=== PATIENT | female | born 1950 | race Caucasian/White ===

== ENCOUNTER 2020-11-13 11:28 | Emergency (ER) | payer MEDICARE, MEDICAID ==
[~2020-11-13 11:28] MED LIST: BACL10TA PO; LORA-269 PO; PARO40TA PO; PENT100C9 PO; QUET-1 PO
== END 2020-11-13 13:26 | disposition left against medical advice (07) ==
LOC: ER 11:28
DX: Z00.00 Encounter for general adult medical examination without abnormal findings (principal); Z53.21 Procedure and treatment not carried out due to patient leaving prior to being seen by health care provider

== ENCOUNTER 2021-12-02 08:01 | Emergency (ER) | payer MEDICARE, MEDICAID ==
[~2021-12-02] VITALS: Ht 167.6 cm; Wt 84.1 kg
[2021-12-02 08:06] VITALS: BP 160/83
[2021-12-02 12:48] LABS: BASOPHILS % (AUTO) 0.5 % (0-1); EOSINOPHILS # (AUTO) 0.1 X10'3 (0-0.9); EOSINOPHILS % (AUTO) 1.6 % (0-6); HEMATOCRIT 40.4 % (35.0-45.0); HEMOGLOBIN 13.4 g/dl (12.0-16.0); LYMPHOCYTES # (AUTO) 0.8 X10'3 (1.1-4.8); LYMPHOCYTES % (AUTO) 12.3 % (21-51); MEAN CORPUSCULAR HEMOGLOBIN 30.6 PG (27.0-31.0); MEAN CORPUSCULAR HGB CONC 33.2 g/dL (33.0-36.5); MEAN PLATELET VOLUME 7.8 FL (7.4-10.4); MONOCYTES # (AUTO) 0.6 X10'3 (0-0.9); MONOCYTES % (AUTO) 9.2 % (2-12); NEUTROPHILS % (AUTO) 76.4 % (42-75); PLATELET COUNT 258 X10'3 (140-440); RED BLOOD COUNT 4.39 X10'6 (4.20-5.60); RED CELL DISTRIBUTION WIDTH 16.8 % (11.5-14.5); WHITE BLOOD COUNT 6.5 X10'3 (4.5-11.0)
[2021-12-02 13:09] LABS: ALANINE AMINOTRANSFERASE 21 U/L (12-78); ALBUMIN 2.9 G/DL (3.4-5.0); ALBUMIN/GLOBULIN RATIO 0.8 (1.1-1.5); ALKALINE PHOSPHATASE 160 IU/L (46-116); ANION GAP 8 (8-16); ASPARTATE AMINO TRANSFERASE 19 U/L (10-37); BILIRUBIN,TOTAL 0.9 MG/DL (0.1-1.0); BLOOD UREA NITROGEN 15 MG/DL (7-18); BUN/CREATININE RATIO 19.7 (6.6-38.0); CALCIUM 8.8 MG/DL (8.5-10.1); CHLORIDE 105 MMOL/L (99-107); CREATININE 0.76 MG/DL (0.40-0.90); GLUCOSE 105 MG/DL (70-104); POTASSIUM 3.6 MMOL/L (3.5-5.1); SODIUM 141 MMOL/L (135-145); TOTAL CARBON DIOXIDE 27.6 MMOL/L (24-32); TOTAL PROTEIN 6.7 G/DL (6.4-8.2); eGFR 75 ML/MIN
[2021-12-02 13:13] LABS: MAGNESIUM 1.7 MG/DL (1.5-2.4); PHOSPHORUS 3.4 MG/DL (2.3-4.5)
[2021-12-02 14:00] LABS: CLARITY,URINE CLOUDY (Clear); COLOR,URINE YELLOW (Yellow); GLUCOSE, URINE NEGATIVE (Neg); KETONES,URINE NEGATIVE (Neg); LEUKOCYTE ESTERASE ,URINE NEGATIVE (Neg); NITRITES, URINE POSITIVE (Neg); OCCULT BLOOD,URINE SMALL (Neg); PROTEIN,URINE TRACE mg/dl (Neg); UROBILINOGEN,URINE 0.2 E.U/dL (0.2-1.0)
[2021-12-02 14:02] LABS: UA COLLECTION TYPE NON-SPECIFIED
[2021-12-02 14:17] LABS: URINE AMPHETAMINE SCREEN NEGATIVE (Neg); URINE BARBITUATE SCREEN NEGATIVE (Neg); URINE BENZODIAZEPINES SCREEN NEGATIVE (Neg); URINE CANNABINOID SCREEN NEGATIVE (Neg); URINE COCAINE SCREEN NEGATIVE (Neg); URINE METHADONE SCREEN NEGATIVE (Neg); URINE OPIATE SCREEN NEGATIVE (Neg); URINE PHENCYCLIDINE SCREEN NEGATIVE (Neg)
[2021-12-02 14:28] LABS: BACTERIA,URINE 4+ /HPF (Neg); SQUAMOUS EPITHELIAL CELL,UR MANY /LPF (FEW)
[2021-12-02 14:29] LABS: CAL OXALATE CRYSTALS 2+ /HPF (NEGATIVE)
[2021-12-02 14:30] LABS: RBC,URINE 0-2 /HPF (0-2)
[2021-12-02] MEDS ORDERED: cephalexin 500mg capsule PO ONE (14:35)
[2021-12-02] MEDS ORDERED: sulfamethoxazole/trimethoprim DS (800/160mg) tablet PO ONE (14:50)
[2021-12-02] MEDS ORDERED: SULF1TAB49 PO (14:56)
== END 2021-12-02 17:03 | disposition home or self-care (01) ==
LOC: ER 08:01
DX: S80.212A Abrasion, left knee, initial encounter (principal); S80.211A Abrasion, right knee, initial encounter; Y04.0XXA Assault by unarmed brawl or fight, initial encounter; Y93.89 Activity, other specified; Y92.89 Other specified places as the place of occurrence of the external cause; Y99.8 Other external cause status; Z88.1 Allergy status to other antibiotic agents; Z88.0 Allergy status to penicillin; Z79.899 Other long term (current) drug therapy
CPT/HCPCS: 36415; 71046; 73560; 80053; 80305; 81001; 83735; 84100; 84484; 85025; 85651; 93005; 99285

== ENCOUNTER 2021-12-04 17:20 | Emergency (ER) | payer MEDICARE, MEDICAID ==
[~2021-12-04] VITALS: Ht 160 cm; Wt 90.9 kg
[~2021-12-04 17:20] MED LIST changes: +SULF1TAB49 PO
[2021-12-04] MEDS ORDERED: SULF1TAB49 PO (17:44)
[2021-12-04 17:48] VITALS: BP 131/109
== END 2021-12-04 18:07 | disposition home or self-care (01) ==
LOC: ER 17:21
DX: Z76.0 Encounter for issue of repeat prescription (principal); M25.561 Pain in right knee; Z60.2 Problems related to living alone; Z88.1 Allergy status to other antibiotic agents; Z88.0 Allergy status to penicillin; Z79.2 Long term (current) use of antibiotics; Z79.899 Other long term (current) drug therapy
CPT/HCPCS: 99281

== ENCOUNTER 2022-10-25 01:43 | Emergency (ER) | payer MEDICARE, MEDICAID ==
[~2022-10-25] VITALS: Ht 167.6 cm; Wt 63.6 kg
[~2022-10-25 01:43] MED LIST changes: -BACL10TA PO; +COR3.125T PO; +FURO40TA4 PO; +LISI5TAB22 PO; -LORA-269 PO; -PARO40TA PO; -PENT100C9 PO; -QUET-1 PO; +SPIR25TA5 PO; -SULF1TAB49 PO
[2022-10-25 01:55] VITALS: BP 165/102
== END 2022-10-25 06:16 | disposition home or self-care (01) ==
LOC: ER 01:44
DX: R42 Dizziness and giddiness (principal); I10 Essential (primary) hypertension; Z88.1 Allergy status to other antibiotic agents
CPT/HCPCS: 93005; 99283

== ENCOUNTER 2022-10-27 03:37 | Emergency (ER) | payer MEDICARE, MEDICAID ==
[~2022-10-27] VITALS: Ht 167.6 cm; Wt 61.4 kg
[2022-10-27 03:56] VITALS: BP 147/53
[2022-10-27] MEDS ORDERED: ACID1CAP3 PO (04:35)
[2022-10-27] MEDS ORDERED: POTA10TA21 PO (04:35)
[2022-10-27] MEDS ORDERED: MAGN64TA8 PO (04:35)
== END 2022-10-27 05:31 | disposition home or self-care (01) ==
LOC: ER 03:38
DX: R25.2 Cramp and spasm (principal); Z76.0 Encounter for issue of repeat prescription
CPT/HCPCS: 99281

== ENCOUNTER 2022-10-29 00:32 | Emergency (ER) | payer MEDICARE, MEDICAID ==
[~2022-10-29] VITALS: Ht 162.6 cm; Wt 68.2 kg
[~2022-10-29 00:32] MED LIST changes: +ACID1CAP3 PO; +MAGN64TA8 PO; +POTA10TA21 PO
[2022-10-29 00:46] VITALS: BP 142/47
== END 2022-10-29 05:16 | disposition home or self-care (01) ==
LOC: ER 00:34
DX: E16.2 Hypoglycemia, unspecified (principal); R53.83 Other fatigue; I11.0 Hypertensive heart disease with heart failure; J45.909 Unspecified asthma, uncomplicated; F31.9 Bipolar disorder, unspecified; Z88.1 Allergy status to other antibiotic agents; Z88.0 Allergy status to penicillin; Z79.899 Other long term (current) drug therapy; Z79.1 Long term (current) use of non-steroidal anti-inflammatories (NSAID); Z79.2 Long term (current) use of antibiotics
CPT/HCPCS: 82948; 99283

== ENCOUNTER 2022-11-05 03:52 | Emergency (ER) | payer MEDICARE, MEDICAID ==
[~2022-11-05] VITALS: Ht 167.6 cm; Wt 65.4 kg
[~2022-11-05 03:52] MED LIST changes: -FURO40TA4 PO
[2022-11-05 03:54] VITALS: BP 161/74
--- NOTE | 2022-11-05 04:04 | NUR ---
pt blood sugar 85 in triage. pt now wanted something to eat and juices, bus ticket,refill of potassium and lasix.
== END 2022-11-05 07:30 | disposition left against medical advice (07) ==
LOC: ER 03:52
DX: Z00.8 Encounter for other general examination (principal); Z53.21 Procedure and treatment not carried out due to patient leaving prior to being seen by health care provider
CPT/HCPCS: 82948; 93005; 99281

== ENCOUNTER 2022-11-06 02:32 | Emergency (ER) | payer MEDICARE, MEDICAID ==
[~2022-11-06] VITALS: Ht 167.6 cm; Wt 64.0 kg
[2022-11-06 04:44] VITALS: BP 164/70
== END 2022-11-06 07:08 | disposition left against medical advice (07) ==
LOC: ER 02:32
DX: Z76.0 Encounter for issue of repeat prescription (principal); Z53.21 Procedure and treatment not carried out due to patient leaving prior to being seen by health care provider
CPT/HCPCS: 99281